=== PATIENT | female | born 2000 | race Caucasian/White ===

== ENCOUNTER 2024-06-13 18:15 | Emergency (ER) | payer MEDICAID, OTHER ==
[~2024-06-13] VITALS: Ht 172.7 cm; Wt 78.1 kg
[2024-06-13] MEDS ORDERED: WELLTAB38 PO (18:46)
[2024-06-13] MEDS ORDERED: GABA-1171 PO (18:46)
[2024-06-13] MEDS ORDERED: SERO1TAB PO (18:46)
[2024-06-13] MEDS ORDERED: PROG1CAP9 PO (18:46)
[2024-06-13] MEDS ORDERED: MIRT-89 PO (18:46)
[2024-06-13] MEDS: NS 1,000 ML IV ONE (20:52)
[2024-06-13] MEDS: ONDANSETRON 4MG 2ML VIAL IV ONE (20:52)
[2024-06-13 20:58] LABS: BASO # 0.1 10^3/uL (0.0-0.2); BASO % 0.6 % (0.0-1.0); EOS # 0.2 10^3/uL (0.0-0.5); EOS % 2.4 % (0.0-3.0); HEMATOCRIT 38.1 % (36.0-47.0); HEMOGLOBIN 12.3 g/dl (12.0-15.5); LYMPH % 19.1 % (24.0-44.0); MEAN CORPUSCULAR HGB CONC 32.3 g/dl (32.0-36.5); MONO # 0.9 10^3/uL (0.0-0.8); MONO % 8.4 % (2.0-8.0); NEUTROPHILS % 68.9 % (36.0-66.0); PLATELET COUNT, AUTOMATED 284 10^3/uL (150-450); RED BLOOD COUNT 3.97 10^6/uL (4.00-5.40); WHITE BLOOD COUNT 10.2 10^3/uL (4.0-10.0)
[2024-06-13 21:25] LABS: LIPASE 38 U/L (12-53)
[2024-06-13 21:27] LABS: ALBUMIN 4.4 G/DL (3.2-5.2); ALKALINE PHOSPHATASE 69 U/L (46-116); ALT/SGPT 58 U/L (7.0-40); AST/SGOT 36 U/L (<34); BILIRUBIN,DIRECT 0.2 MG/DL (<0.4); BILIRUBIN,TOTAL 0.8 MG/DL (0.3-1.2); BLOOD UREA NITROGEN 7 MG/DL (9-23); CALCIUM LEVEL 9.5 MG/DL (8.5-10.1); CARBON DIOXIDE LEVEL 28 MMOL/L (20-31); CHLORIDE LEVEL 105 MMOL/L (98-107); CREATININE FOR GFR 0.64 MG/DL (0.55-1.30); GLOMERULAR FILTRATION RATE > 60.0 (>60); GLUCOSE, FASTING 86 MG/DL (60-100); MAGNESIUM LEVEL 2.2 MG/DL (1.8-2.4); POTASSIUM SERUM 3.7 MMOL/L (3.5-5.1); SODIUM LEVEL 139 MMOL/L (136-145); TOTAL PROTEIN 7.8 G/DL (5.7-8.2)
[2024-06-13 22:22] LABS: CK-MB VALUE MASS < 1.0 NG/ML (<3.6)
[2024-06-13 22:30] LABS: CPK CREATINE PHOSPHOKINASE 70 U/L (34-145); MB/CK RELATIVE INDEX 1.42 (< OR =4)
[2024-06-13 23:20] LABS: CK-MB VALUE MASS < 1.0 NG/ML (<3.6)
[2024-06-13 23:24] LABS: CPK CREATINE PHOSPHOKINASE 59 U/L (34-145); MB/CK RELATIVE INDEX 1.69 (< OR =4)
[2024-06-14] MEDS ORDERED: DOXY-323 PO (01:21)
[2024-06-14 01:28] VITALS: BP 121/62; TEMP 97.9; O2SAT 99
[2024-06-14] MEDS: DOXYCYCLINE HYCLATE 100MG TABLET PO ONE (01:30)
== END 2024-06-14 01:34 | disposition home or self-care (01) ==
LOC: EDSEX 18:15 → M ED 18:15
DX: R42 Dizziness and giddiness (principal); J18.9 Pneumonia, unspecified organism; R00.1 Bradycardia, unspecified; F32.A Depression, unspecified; F12.10 Cannabis abuse, uncomplicated; F10.10 Alcohol abuse, uncomplicated; Z79.2 Long term (current) use of antibiotics; Z79.899 Other long term (current) drug therapy
CPT/HCPCS: 71045; 80048; 80076; 81001; 82550; 82553; 83690; 83735; 84484; 85025; 87486; 87581; 87633; 87798; 93005; 96374; 99284; J2405